=== PATIENT | female | born 1995 | race African-American/Black ===

== ENCOUNTER 2020-05-23 08:26 | Emergency (ER) | payer OTHER ==
[~2020-05-23] VITALS: Ht 170.2 cm; Wt 70.0 kg
[2020-05-23 08:29] VITALS: BP 108/63
== END 2020-05-23 09:38 | disposition home or self-care (01) ==
LOC: ER 08:26
DX: B34.9 Viral infection, unspecified (principal)
CPT/HCPCS: 99281

== ENCOUNTER 2024-11-13 10:05 | Emergency (ER) | payer OTHER ==
[~2024-11-13] VITALS: Ht 170.2 cm; Wt 72.7 kg
[2024-11-13 10:12] VITALS: TEMP 36.9; O2SAT 100
[2024-11-13] MEDS: BACITRACIN ZINC OINT UDPKT TOP ONE (11:45)
[2024-11-13] MEDS: LIDOCAINE HCL/EPINEPHRINE 1%-EPI 1:100,000 20ML VIAL INFIL ONE (11:45)
[2024-11-13 13:00] VITALS: BP 116/66; PULSE 84; RESP 18; O2SAT 100
[2024-11-13] MEDS ORDERED: SULF1TAB48 MT (13:12)
[2024-11-13] MEDS ORDERED: CEPH500T MT (13:12)
== END 2024-11-13 13:37 | disposition home or self-care (01) ==
LOC: ER 10:05
DX: N76.4 Abscess of vulva (principal); Z79.899 Other long term (current) drug therapy
CPT/HCPCS: 56405; 99284; J2004; Z7610 ×4

== ENCOUNTER 2024-11-19 21:59 | Emergency (ER) | payer OTHER ==
[~2024-11-19] VITALS: Ht 170.2 cm; Wt 73.0 kg
[~2024-11-19 21:59] MED LIST: CEPH500T MT; SULF1TAB48 MT
[2024-11-19 22:15] VITALS: TEMP 36.8; O2SAT 100
[2024-11-19] MEDS ORDERED: BO1 TP (23:28)
[2024-11-19 23:50] VITALS: BP 101/58; PULSE 76; RESP 12; O2SAT 100
== END 2024-11-19 23:51 | disposition home or self-care (01) ==
LOC: ER 21:59
DX: N76.0 Acute vaginitis (principal)
CPT/HCPCS: 99282